=== PATIENT | female | born 1975 | race African-American/Black ===

== ENCOUNTER 2019-07-06 06:22 | Inpatient (IN) ==
[2019-07-06] MEDS ORDERED: DUONEB (A & A) ONE (06:36)
[2019-07-06] MEDS ORDERED: DUONEB (A & A) INH ONE ×2 (06:37→07:48)
[2019-07-06] MEDS ORDERED: TYLENOL PO ONE (07:01)
--- NOTE | 2019-07-06 07:17 | Diag Imaging Result Doc PS360 ---
EXAM: CHEST-2 VIEWS HISTORY: wheezing TECHNIQUE: Chest two views COMPARISON: 04/11/2018 FINDINGS: The lungs are well expanded. The heart is not enlarged. The vessels are not distended. There are no infiltrates. No pleural effusions. IMPRESSION: No acute abnormality. Electronically signed by Wilian Caceres 07/06/2019 7:15 AM
[2019-07-06] MEDS ORDERED: SOLU-MEDROL IV ONE (07:48)
[2019-07-06] MEDS ORDERED: ROCEPHIN 1 GM in NS 50 ML IV ONE (07:48)
[2019-07-06 08:22] LABS: BE 3.6 mmoll (-3.0-3.0); BLOOD TYPE ARTERIAL; HCO3-(ACT) 27.4 mmoll (20.0-26.0); METHB 0.9 % (0.0-1.5); O2(CT) 18.3 mL/dL (15.0-23.0); PCO2(98.6) 43 mmHg (35-45); PO2(98.6) 56 mmHg (60-100); SAMPLE BLOOD; SAO2 92.1 % (95.0-100.0); THB 14.9 g/dL (11.5-17.4); pH(98.6) 7.43 (7.35-7.45)
[2019-07-06 08:26] LABS: ALLEN TEST YES; MODALITY ROOM AIR; O2HB 87.3 % (95.0-99.0)
[2019-07-06 08:37] LABS: BASO# 0.03 X1000 (0.0-0.2); BASO% 0.3 % (0.0-0.8); EOS# 0.28 X1000 (0.0-0.7); EOS% 2.9 % (0.0-10.0); HEMATOCRIT 39.4 % (37.0-47.0); HEMOGLOBIN 12.4 g/dL (12.0-16.0); IMM GRAN# 0.02 X1000 (0.0-0.04); IMM GRAN% 0.2 % (0.0-0.5); LYMPH# 1.39 X1000 (1.2-3.4); LYMPH% 14.4 % (20.5-51.1); MCH 24.8 PG (27-31); MCHC 31.5 g/dL (33-37); MCV 78.6 FL (81-99); MONO# 0.62 X1000 (0.11-0.59); MONO% 6.4 % (1.7-9.3); MPV 11.6 FL (7.4-10.4); NEUT# 7.29 X1000 (1.4-6.5); NEUT% 75.8 % (42.2-75.2); PLT 269 X1000 (130-400); RBC 5.01 XMIL (4.2-5.4); RDW 17.8 % (11.5-14.5); WBC 9.63 X1000 (4.8-10.8)
[2019-07-06 08:42] LABS: AGAP 9; BUN 7 mg/dL (8-22); CALCIUM 9.2 mg/dL (8.8-10.2); CHLORIDE 104 mmol/L (98-107); COSMO 285; CREATININE 0.7 mg/dL (0.5-0.9); ESTIMATED GFR > 60; GLUCOSE 135 mg/dL (70-104); POTASSIUM 3.4 mmol/L (3.5-5.1); SODIUM 143 mmol/L (136-145); TCO2 31 mmol/L (25-35)
[2019-07-06 08:55] LABS: INFLUENZA A NEGATIVE (NEGATIVE); INFLUENZA B NEGATIVE (NEGATIVE)
[2019-07-06] MEDS ORDERED: ZOFRAN IV PRN (11:07)
[2019-07-06] MEDS ORDERED: DUONEB (A & A) INH PRN (11:07)
[2019-07-06] MEDS ORDERED: NS 1,000 ML IV ONE (11:07)
--- NOTE | 2019-07-06 11:10 | PROVIDER DOCUMENTATION ---
This chart was entered by Phyllis De León Scribe, acting as scribe for Binu Gaytan MD. HPI-Respiratory General - General Chief Complaint: Wheezing Stated Complaint: COUGH / CONGESTION / SOB Time Seen by Provider: 07/06/19 07:45 Source: patient Allergies/Adverse Reactions: Patient Allergies Allergy/AdvReac Type Severity Reaction Status Date / Time diclofenac Allergy Unknown Verified 07/06/19 06:29 Penicillins Allergy Unknown Verified 07/06/19 06:29 Home Medications: Home Medication List Medication Instructions Recorded Confirmed Last Taken Type NK [No Home Medications] 07/06/19 07/06/19 Unknown History - History of Present Illness-Resp Nature of Presenting Problem: Patient is a 44 year old female who presents with shortness of breath, wheezing and cough. States symptoms have been present for 3 days. Denies history of asthma. Quality of Pain: reports: tightness Severity in ED: reports: mild Onset/Duration: reports: 3 days ago Timing: reports: still present, getting worse Cough Quality/Degree: reports: moderate, productive cough, sputum (yellow) Associated Symptoms: reports: cough, shortness of breath, wheezing Similar Symptoms Previously?: Yes Recently seen or treated by another doctor?: No Review of Systems - Adult - REVIEW OF SYSTEMS - ADULT Constitutional: reports: no symptoms reported. denies: chills, fever, fatique Eyes: reports: no symptoms reported Ears, Nose, Mouth & Throat: reports: no symptoms reported Cardiovascular: reports: no symptoms reported Respiratory: reports: see HPI, cough, shortness of breath, wheezing Gastrointestinal: reports: no symptoms reported Genitourinary: reports: no symptoms reported Musculoskeletal: reports: no symptoms reported Integumentary: reports: no symptoms reported Neurological: reports: no symptoms reported Psychiatric: reports: no symptoms reported Endocrine: reports: no symptoms reported Hematologic/Lymphatic: reports: no symptoms reported Allergic/Immunologic: reports: no symptoms reported All Other Systems: Reviewed and Negative Past History - Adult - PAST MEDICAL HISTORY-ADULT Review of Records: reports: Old Records Reviewed, Social history reviewed & non- contributory. Major Childhood Illnesses: reports: denies history Cardiovascular: reports: denies history Respiratory: reports: denies history Gastrointestinal: reports: denies history Obstetrical/Gynecological: reports: ectopic Genitourinary: reports: denies history Musculoskeletal: reports: chronic pain (chronic back pain) Neurological: reports: denies history Psychiatric: reports: denies history Endocrine/Immune: reports: Diabetes (no medications) Other Conditions: reports: denies history - PRIOR SURGERIES/PROCEDURES Surgical/Procedure History: reports: appendectomy, hysterectomy, BTL, , other (ectopic preg) - IMMUNIZATION STATUS Childhood Immunizations: See Nurse Assessment Flu Vaccine: See Nurse Assessment - FAMILY HISTORY Family History: sudden (brother/father), CAD under 55yo (brother/father at 45 of [place]) - SOCIAL HISTORY Smoking: cigarettes, less than 1 pack/day Provider spent 3-5 mins advising pt. on dangers of tobacco.: Discussed manners to quit use, and f/u contacts for add'l counseling. Substance Use: denies Physical Exam-General - PHYSICAL EXAM-ADULT Initial Vital Signs Reviewed: Yes - CONSTITUTIONAL General Appearance: alert, no apparent distress, other (coughing). negative: lethargic - HEAD, EARS, NOSE, MOUTH & THROAT HENMT: normocephalic/atraumatic, moist mucous membranes. negative: angioedema - RESPIRATORY Respiratory: chest non-tender, rales (moderate bilaterally), wheezing (mild). negative: respiratory distress, accessory muscle use, retractions, increased rate - CARDIOVASCULAR Cardiovascular: normal peripheral pulses, regular rate, rhythm. negative: tachycardia, systolic murmur - GASTROINTESTINAL (ABDOMEN) Abdominal Exam: normal bowel sounds, non tender, soft. negative: guarding, rigid - MUSCULOSKELETAL Extremity: normal range of motion, non-tender, normal inspection. negative: calf tenderness, deformity, erythema - SKIN Integumentary: normal color, normal turgor, warm/dry. negative: diaphoresis, ecchymosis, jaundice, rash - NEUROLOGIC Neurologic: grossly normal. negative: aphasia, facial droop - PSYCHIATRIC Psych/Mental Status: normal mood/affect, oriented x 3. negative: anxious Progress - PLAN OF CARE/RESULTS Progress/Plan/Lab Results: Vital Signs - 8 hr 07/06/19 06:25 07/06/19 06:45 07/06/19 08:00 Pulse Rate 98 H 98 H 91 H Respiratory Rate 22 22 24 Blood Pressure 164/99 O2 Sat by Pulse Oximetry 91 L 96 93 L 07/06/19 08:24 07/06/19 10:16 07/06/19 10:55 Pulse Rate 96 H 94 H Respiratory Rate 26 H 20 20 Blood Pressure 141/77 O2 Sat by Pulse Oximetry 85 L 94 L Laboratory Results - last 24 hr 07/06/19 07/06/19 07/06/19 07:45 07:56 08:10 WBC RBC Hgb Hct MCV MCH MCHC RDW Std Deviation Plt Count MPV Immature Gran % (Auto) Neut % (Auto) Lymph % (Auto) [place] % (Auto) Eos % (Auto) Baso % (Auto) Immature Gran # (Auto) Neut # (Auto) Lymph # (Auto) [place] # (Auto) Eos # (Auto) Baso # (Auto) Specimen Type ARTERIAL Sample Site R RADIAL pH 7.43 pCO2 43 pO2 56 L HCO3 27.4 H Base Excess 3.6 H Oxyhemoglobin 87.3 L* ABG O2 Sat (Calculated) 18.3 ABG O2 Saturation 92.1 L ABG Carboxyhemoglobin 4.30 H ABG Methemoglobin 0.9 Benjamin Test YES A-a O2 Difference 40.0 Total Hemoglobin 14.9 Lactate 0.80 Blood Gas Modality ROOM AIR FiO2 % 21.0 Sodium 143 Potassium 3.4 L Chloride 104 Carbon Dioxide 31 Anion Gap 9 BUN 7 L Creatinine 0.7 Estimated GFR/1.73 m2 > 60 BUN/Creatinine Ratio 10 Glucose 135 H Calculated Osmolality 285 Calcium 9.2 Plasma Lactate Influenza A (Rapid) NEGATIVE Influenza B (Rapid) NEGATIVE 07/06/19 07/06/19 08:10 08:10 WBC 9.63 RBC 5.01 Hgb 12.4 Hct 39.4 MCV 78.6 L MCH 24.8 L MCHC 31.5 L RDW Std Deviation 17.8 H Plt Count 269 MPV 11.6 H Immature Gran % (Auto) 0.2 Neut % (Auto) 75.8 H Lymph % (Auto) 14.4 L [place] % (Auto) 6.4 Eos % (Auto) 2.9 Baso % (Auto) 0.3 Immature Gran # (Auto) 0.02 Neut # (Auto) 7.29 H Lymph # (Auto) 1.39 [place] # (Auto) 0.62 H Eos # (Auto) 0.28 Baso # (Auto) 0.03 Specimen Type Sample Site pH pCO2 pO2 HCO3 Base Excess Oxyhemoglobin ABG O2 Sat (Calculated) ABG O2 Saturation ABG Carboxyhemoglobin ABG Methemoglobin Benjamin Test A-a O2 Difference Total Hemoglobin Lactate Blood Gas Modality FiO2 % Sodium Potassium Chloride Carbon Dioxide Anion Gap BUN Creatinine Estimated GFR/1.73 m2 BUN/Creatinine Ratio Glucose Calculated Osmolality Calcium Plasma Lactate 1.0 Influenza A (Rapid) Influenza B (Rapid) Orders Category Date Time Status Admit - [facility] Routine AdmDCTranf 07/06/19 11:07 Active Activity - Up with Assistance ORDERED Care 07/06/19 11:07 Active FSBS/Accucheck Result AC + HS Care 07/06/19 11:07 Active Saline Loc NOW Care 07/06/19 07:47 Active Diabetic Diet Diet 07/06/19 11:07 Active CHEST-2 VIEWS [RAD] Stat Exams 07/06/19 06:42 Completed ABG [RESP] Routine Lab 07/06/19 07:45 Completed BASIC METABOLIC PANEL [CHEM] Stat Lab 07/06/19 08:10 Completed BLOOD CULTURE [BLDCUL] Stat Lab 07/06/19 07:47 Ordered CBC WITH ELECTRONIC DIFF [HEME] Stat Lab 07/06/19 08:[address] Stat Lab 07/06/19 07:56 Completed LACTATE, PLASMA [CHEM] Stat Lab 07/06/19 08:10 Completed SPUTUM CULTURE WITH GRAM STAIN [RM] Routine Lab 07/06/19 11:07 Uncollected 0.9% Sodium Chloride Inj [Ns] 1,000 ml Med 07/06/19 11:07 Active IV 50 mls/hr Acetaminophen [Tylenol] Med 07/06/19 07:01 Discontinued 1,000 mg PO NOW ONE Acetaminophen [Tylenol] Med 07/06/19 11:07 Ordered 650 mg PO Q6H PRN PRN Albuterol 2.5MG/Ipratrop 0.5MG [Duoneb (A & A)] Med 07/06/19 06:36 Discontinued 3 ml .ROUTE .STK-MED ONE Albuterol 2.5MG/Ipratrop 0.5MG [Duoneb (A & A)] Med 07/06/19 06:37 Discontinued 3 ml INH NOW ONE Albuterol 2.5MG/Ipratrop 0.5MG [Duoneb (A & A)] Med 07/06/19 07:48 Discontinued 3 ml INH NOW ONE Albuterol 2.5MG/Ipratrop 0.5MG [Duoneb (A & A)] Med 07/06/19 11:07 Ordered 3 ml INH Q2H PRN PRN Budesonide [Pulmicort] Med 07/06/19 19:30 Ordered 0.5 mg INH RTBID CefTRIAXONE [Rocephin] 1 gm Med 07/06/19 07:48 Discontinued 0.9% Sodium Chloride Inj [Ns] 50 ml IV NOW CefTRIAXONE [Rocephin] 1 gm Med 07/07/19 09:00 Ordered 0.9% Sodium Chloride Inj [Ns] 50 ml IV Q24H Enoxaparin [Lovenox] Med 07/07/19 09:00 Ordered 40 mg SUBQ Q24H Insulin Human Regular [Humulin R] Med 07/06/19 16:00 Ordered See Protocol SUBQ 0700,1100,1600,2100 Ipratropium Ryan Neb [Atrovent Neb] Med 07/06/19 11:30 Ordered 0.5 mg INH RTQ4H Levalbuterol Neb [Xopenex Neb] Med 07/06/19 11:30 Ordered 1.25 mg INH RTQ4H Methylprednisolone Sod Succ [Solu-Medrol] Med 07/06/19 07:48 Discontinued 125 mg IV NOW ONE Methylprednisolone Sod Succ [Solu-Medrol] Med 07/06/19 16:00 Ordered 40 mg IV Q8H Nicotine Patch [Nicoderm Patch] Med 07/06/19 11:15 Ordered 14 mg TD DAILY Ondansetron [Zofran] Med 07/06/19 11:07 Ordered 4 mg IV Q4H PRN PRN Pantoprazole [Protonix] Med 07/07/19 07:00 Ordered 40 mg PO DAILY@0700 Aerosol Treatments Routine Ot 07/06/19 06:37 Completed Aerosol Treatments Routine Ot 07/06/19 07:48 Completed Aerosol Treatments Routine [facility] 07/06/19 11:07 Active Aerosol Treatments Stat Ot 07/06/19 06:37 Completed Aerosol Treatments Stat Ot 07/06/19 07:48 Completed Incentive Spirometer Q4HR.AWAKE Ot 07/06/19 13:00 Ordered Incentive Spirometer Q4HR.AWAKE Ot 07/06/19 17:00 Ordered Incentive Spirometer Q4HR.AWAKE Ot 07/06/19 21:00 Ordered Incentive Spirometer Q4HR.AWAKE Ot 07/07/19 01:00 Ordered Incentive Spirometer Q4HR.AWAKE Ot 07/07/19 05:00 Ordered Incentive Spirometer Q4HR.AWAKE [facility] 07/07/19 09:00 Ordered Peak Flow BID Ot 07/06/19 21:00 Ordered Peak Flow BID [facility] 07/07/19 09:00 Ordered Transfer/Admit Order [TRANSFER] Routine Transfer 07/06/19 11:02 Ordered Result Diagrams: 07/06/19 08:10 07/06/19 08:10 - REASSESSMENT Reassessment #1 Time Reassessed: 10:07 Status: improving (WHEEZING AND RALES IMPROVED POST DUO-NEB,TRATEMENTS BUT STILL DESATS DOWN TO 88% ON ROOM PAIN! PAGING DR GONG NOW.) - XRAY 1 XRAY Study: Chest Impression: See EMR Report ( EXAM: CHEST-2 VIEWS HISTORY: wheezing TECHNIQUE: Chest two views COMPARISON: 04/11/2018 FINDINGS: The lungs are well expanded. The heart is not enlarged. The vessels are not distended. There are no infiltrates. No pleural effusions. IMPRESSION: No acute abnormality. Electronically signed by Wilian Caceres 07/06/2019 7:15 AM 07/06/19714 Interpreting Physician: Wilian Caceres MD Dictated Date/Time: 07/06/19713 cc: Cecilio Tamez MD; None,PCP) - CONSULTS/PCP/HOSPITALIST Notification #1 *Consult/PCP/Hospitalist*: Dr. Gong Time Discussed: 10:36 Reason/Comments: Dr. Gaytan consulted Dr. Gong about patient Consult Disposition: Will see in ED, Admit Departure - Departure Date of Disposition Decision: 07/06/19 Time of Disposition Decision: 10:37 DIAGNOSIS: Acute asthmatic bronchitis, Hypoxemia Disposition: ADMITTED INPATIENT 09 Certified Medical Emergency: Emergent Condition: Stable Referrals and Follow-Ups: None,PCP [Primary Care Provider] - - Critical Care Note This patient required my direct & personal management of CC.: No Attestation - Physician/ WALLY Attestation The physician spent face to face time with patient:: Yes Advanced Practice Provider documentation review:: Supervising physician onsite and consulted in the evaluation and care of this patient. The physician did have a face to face encounter with the patient. This chart was documented by the indicated scribe, (Phyllis De León, Lesley) and accurately reflects the services I performed and decisions made by me, Binu Gaytan MD, as attested by the provider's signature.
[2019-07-06] MEDS ORDERED: ATROVENT NEB INH SCH (11:30)
[2019-07-06] MEDS ORDERED: XOPENEX NEB INH SCH (11:30)
[2019-07-06 12:22] LABS: HEMOGLOBIN A1C 7.1 % (4.8-6.0)
[2019-07-06 12:39] LABS: FREE T4 1.11 ng/dL (0.93-1.70); TSH 2.2 uIUmL (0.27-4.20)
--- NOTE | 2019-07-06 13:22 | HISTORY AND PHYSICAL ---
PRIMARY CARE PROVIDER: No one. CHIEF COMPLAINT: Shortness of breath with chest discomfort. HISTORY OF PRESENT ILLNESS: Ms. Ellie Calderon is a 44-year-old, female with a medical history of asthma, COPD, diabetes mellitus - untreated, chronic back pain, hypertension - untreated, and seasonal allergies. States for the last 3 days, she has had headaches, shortness of breath, severe coughing spells and coughs more frequently at night, some dizziness, lightheaded spells when she is coughing, and has been around other kids that have had congestion as well. Chest x-ray is clear. White blood cell count is normal but she does have some hypoxia and expiratory wheezes noted so it is either acute asthma or it is bronchitis. We are going to admit her and treat her accordingly. PAST MEDICAL HISTORY: 1. Asthma with COPD. 2. Diabetes mellitus type 2, untreated. 3. Chronic back pain. 4. Hypertension, untreated. 5. Seasonal allergies. 6. Morbid obesity with a BMI of 34.7. SURGICAL HISTORY: 1. Appendectomy. 2. section. 3. Hysterectomy. 4. Tubal ligation. 5. Ectopic . SOCIAL HISTORY: She has smoked since the age of 20. She smokes a half pack per day. Denies alcohol or illicit drug use. She lives at home with her and 3 children. One of her daughters is . 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 FAMILY HISTORY: Mother, no medical history. Father had pancreatic and lung cancer. He also had 4 heart attacks while he was alive and at the age of 42. Her grandfather had colon cancer on her father's side. Her uncle on her father's side at 36 from a stroke and heart attack. Her brother at 43 from a heart attack and he had 2 strokes along with diabetes. She has 1 child with Down syndrome. ALLERGIES: Diclofenac and penicillin. HOME MEDICATIONS: None. REVIEW OF SYSTEMS: Fourteen point review of systems are complete and all were negative except for those mentioned above in the HPI. She did say she had some epigastric discomfort, mostly because of coughing so much. PHYSICAL EXAMINATION: VITAL SIGNS: Temperature not recorded. Heart rate 96, respiratory rate 20, blood pressure was 141/77, O2 saturation on room air is 85% and O2 saturation on 2 L nasal cannula is 92-93%. GENERAL: Ms. Ellie Calderon is a 44-year-old, female. She is in no acute distress. She is able to answer questions appropriately. HEENT: Atraumatic, normocephalic. Pupils equal, round, reactive to light. Extraocular movements intact. Mucous membranes are dry. NECK: Trachea midline. CARDIOVASCULAR: S1, S2. Regular rate and rhythm. No rubs, gallops, murmurs. No lower extremity edema. There are +2 dorsalis and radial pulses. Negative for JVD and carotid bruits. PULMONARY: Expiratory wheezes noted anteriorly and posteriorly with prolonged expiration. Mild accessory muscle use and mild work of breathing. She is tolerating 2 L nasal cannula. G: Soft, nontender, nondistended. Positive bowel sounds x4. EXTREMITIES: Moves all extremities equally with full range of motion. NEUROLOGIC: A and O x3. Follows commands. Sensory is intact. SKIN: Warm, dry, intact. LABORATORY DATA: White blood cells 9000, hemoglobin 12, hematocrit 39, platelet count 269,000. ABGs on room air, pH 7.43, pCO2 of 43, PO2 of 56, bicarb 27, base excess 3.6, saturation 97%, lactate 0.8 on room air. Sodium 143, potassium 3.4, BUN 7, creatinine 0.7, glucose 135, calcium 9.2. Lactate 1.0. Flu negative. IMAGING: Chest x-ray, no acute abnormalities. ASSESSMENT AND PLAN: 1. Acute bronchitis with a history of asthma and chronic obstructive pulmonary disease without home medication management. Apparently, she said that the inhalers she was prescribed on discharge last year were 200 dollars and she could not afford it. She will have nebulizers, budesonide, intravenous steroids. We will try to get a sputum sample. She states she is coughing up green colors. She will get intravenous Rocephin for antibiotic coverage and some intravenous fluid hydration. 2. Seasonal allergies. She could be having a reaction to the high pollen counts that are going on right now as well. We can add Zyrtec to her medication regimen. 3. Diabetes mellitus type 2. She states she does not have it or she has not been taking medications for it. She is hyperglycemic and we will check a hemoglobin A1c. We will do pattern of blood glucoses, sliding scale insulin, and diabetic diet. 4. Chronic back pain. She can have some Tylenol. 5. Hypertension, untreated. We will monitor it while she is here. She states it only gets high when she is sick. 6. Deep venous thrombosis. Lovenox. 7. Significant family history on her father's side of early due to myocardial infarction. Family members that would be her brother at age 43, her father at age 42, her uncle at age 36. We will do a lipid panel along with a hemoglobin A1c, probably get her started on some aspirin. 8. Tobacco abuse. Cessation discussed. Nicotine patch ordered. Dictated by TIFFANY Jenkins for Ramez Augustin MD Addendum: Patient seen and examined by myself. Agree with TIFFANY note. It reflects my assessment and plan. Patient is admitted to hospital for acute bronchitis. Will start broad spectrum antibiotics, duoneb and IV steroids Will monitor patient closely. cc: TIFFANY Jenkins MD MTDD
[2019-07-06] MEDS: LEVAQUIN 750 MG/D5W 750 MG/150 ML IVPB IV SCH (14:24)
[2019-07-06] MEDS: NICODERM PATCH TD SCH (14:24)
[2019-07-06] MEDS: ZYRTEC PO SCH (14:24)
[2019-07-06] MEDS: MUCINEX PO SCH ×2 (14:41→21:21)
[2019-07-06] MEDS: DUONEB (A & A) INH SCH ×3 (15:25→22:49)
[2019-07-06] MEDS ORDERED: PNEUMOVAX 23 IM ONE (16:00)
[2019-07-06] MEDS: HUMULIN 70/30 (PARKWAY) SUBQ SCH ×2 (16:51→21:20)
[2019-07-06] MEDS: SOLU-MEDROL IV SCH ×2 (16:51→23:05)
[2019-07-06] MEDS: PULMICORT INH SCH (19:32)
[2019-07-06] MEDS: TYLENOL PO PRN (23:46)
[2019-07-07] MEDS: DUONEB (A & A) INH SCH ×6 (03:32→23:03)
[2019-07-07] MEDS: HUMULIN 70/30 (PARKWAY) SUBQ SCH ×4 (06:11→21:14)
[2019-07-07] MEDS: PROTONIX PO SCH (06:11)
[2019-07-07 06:31] LABS: BASO# 0.01 X1000 (0.0-0.2); BASO% 0.1 % (0.0-0.8); HEMATOCRIT 36.1 % (37.0-47.0); HEMOGLOBIN 11.2 g/dL (12.0-16.0); IMM GRAN# 0.08 X1000 (0.0-0.04); IMM GRAN% 0.5 % (0.0-0.5); LYMPH# 0.71 X1000 (1.2-3.4); LYMPH% 4.5 % (20.5-51.1); MCH 24.4 PG (27-31); MCV 78.6 FL (81-99); MONO# 0.43 X1000 (0.11-0.59); MONO% 2.7 % (1.7-9.3); MPV 11.8 FL (7.4-10.4); NEUT# 14.48 X1000 (1.4-6.5); NEUT% 92.2 % (42.2-75.2); PLT 247 X1000 (130-400); RBC 4.59 XMIL (4.2-5.4); RDW 17.8 % (11.5-14.5); WBC 15.71 X1000 (4.8-10.8)
[2019-07-07 06:48] LABS: ANISOCYTOSIS 1+; LYMPHS 5 % (21-51); SEGS 95 % (42-75)
[2019-07-07 06:51] LABS: AGAP 13; ALBUMIN 3.6 g/dL (3.5-5.0); ALKALINE PHOSPHATASE 159 U/L (32-104); BUN 8 mg/dL (8-22); CALCIUM 9.2 mg/dL (8.8-10.2); CHLORIDE 108 mmol/L (98-107); COSMO 295; CREATININE 0.7 mg/dL (0.5-0.9); ESTIMATED GFR > 60; GLUCOSE 343 mg/dL (70-104); GOT 14 U/L (10-30); GPT 14 U/L (10-36); POTASSIUM 3.8 mmol/L (3.5-5.1); SODIUM 142 mmol/L (136-145); TCO2 22 mmol/L (25-35); TOTAL BILIRUBIN < 0.15 mg/dL (0.20-1.00); TOTAL PROTEIN 6.7 g/dL (6.3-8.3)
--- NOTE | 2019-07-07 07:30 | Diag Imaging Result Doc PS360 ---
EXAM: CHEST-2 VIEWS HISTORY: short of breath TECHNIQUE: Chest two views COMPARISON: 07/06/2019 FINDINGS: The lungs are well expanded. The heart is not enlarged. The vessels are not distended. Minimal increased markings in the lung bases and right apex. No pleural effusions. IMPRESSION: Questionable tiny basilar infiltrates Electronically signed by Wilian Caceres 07/07/2019 7:29 AM
[2019-07-07] MEDS: PULMICORT INH SCH ×2 (07:54→19:26)
[2019-07-07] MEDS: MUCINEX PO SCH ×2 (08:21→21:14)
[2019-07-07] MEDS: SOLU-MEDROL IV SCH (08:21)
[2019-07-07] MEDS: NICODERM PATCH TD SCH (08:22)
[2019-07-07] MEDS: LOVENOX SUBQ SCH (08:22)
[2019-07-07] MEDS: ASPIRIN PO SCH (08:22)
[2019-07-07] MEDS: ZYRTEC PO SCH (08:22)
[2019-07-07] MEDS: ROCEPHIN 1 GM in NS 50 ML IV SCH (08:42)
--- NOTE | 2019-07-07 10:57 | PROGRESS NOTE ---
DATE: 07/07/2019 SUBJECTIVE: The patient reports feeling fine. Denies any fever or chills. Shortness of breath is getting better. OBJECTIVE: Vital Signs: Temperature 98.2 degrees, heart rate 80, respiratory 14, blood pressure 166/79, O2 saturation 94% 2 L nasal cannula. General: This is a 44-year-old female lying in bed, in no acute distress. Cardiovascular: S1, S2 heard. No murmurs, gallops, or rubs. Regular rate and rhythm. Respiratory: Clear bilaterally to auscultation. No work of breathing or using accessory muscles. Abdomen: Soft. Expiratory wheezing noted anteriorly and posteriorly, getting better. The patient is not using any accessory muscles or having work of breathing. Abdomen: Soft, nontender to palpation. Bowel sounds present. No organomegaly. Extremities: No clubbing, cyanosis, or edema. Peripheral pulses present in both legs. Neurological: The patient is alert and oriented x3. Moves 4 extremities. LABORATORY DATA: White cell count 15.71. Hemoglobin A1c 7.0. Blood sugars 343. ASSESSMENT AND PLAN: 1. Acute bronchitis with history of chronic obstructive pulmonary disease. Patient continues to be on antibiotics, in this case is ceftriaxone and Levaquin. The patient has been receiving also IV steroids but this is causing that the blood sugar has been really high. White cell count is getting higher as well, so at this point, we will stop the steroids. We will continue with current antibiotics. 2. Diabetes mellitus type 2. The patient has hemoglobin A1c of 7.0 which makes diagnosis diabetes. She has been told that she had diabetes but she was not taking any medication. In any case, we will continue with sliding scale insulin. We will continue with metformin and we will go from there. 3. Chronic back pain. The patient will continue with Tylenol. 4. Hypertension. Blood pressure is under control. We will continue with current medications. 5. Disposition. I think at this point, we will continue with the current management. If patient is feeling better and requiring no oxygen, then we will let her go out tomorrow. cc: MD LIZETT Brandon
[2019-07-07 12:33] LABS: AGAP 13; ALKALINE PHOSPHATASE 155 U/L (32-104); BUN 9 mg/dL (8-22); CALCIUM 9.3 mg/dL (8.8-10.2); CHLORIDE 107 mmol/L (98-107); COSMO 296; CREATININE 0.8 mg/dL (0.5-0.9); ESTIMATED GFR > 60; GLUCOSE 287 mg/dL (70-104); GOT 12 U/L (10-30); GPT 15 U/L (10-36); SODIUM 144 mmol/L (136-145); TCO2 24 mmol/L (25-35); TOTAL BILIRUBIN < 0.15 mg/dL (0.20-1.00)
[2019-07-07] MEDS: LEVAQUIN 750 MG/D5W 750 MG/150 ML IVPB IV SCH (14:21)
[2019-07-07 18:47] LABS: AGAP 14; ALBUMIN 3.7 g/dL (3.5-5.0); ALKALINE PHOSPHATASE 157 U/L (32-104); BUN 10 mg/dL (8-22); CALCIUM 9.2 mg/dL (8.8-10.2); CHLORIDE 106 mmol/L (98-107); COSMO 298; CREATININE 0.8 mg/dL (0.5-0.9); ESTIMATED GFR > 60; GLUCOSE 412 mg/dL (70-104); GOT 17 U/L (10-30); GPT 12 U/L (10-36); SODIUM 141 mmol/L (136-145); TCO2 21 mmol/L (25-35); TOTAL BILIRUBIN < 0.15 mg/dL (0.20-1.00); TOTAL PROTEIN 6.7 g/dL (6.3-8.3)
[2019-07-08] MEDS: TYLENOL PO PRN (00:19)
[2019-07-08 01:44] LABS: AGAP 11; ALBUMIN 3.9 g/dL (3.5-5.0); ALKALINE PHOSPHATASE 151 U/L (32-104); BUN 11 mg/dL (8-22); CHLORIDE 108 mmol/L (98-107); COSMO 288; CREATININE 0.7 mg/dL (0.5-0.9); ESTIMATED GFR > 60; GLUCOSE 200 mg/dL (70-104); GOT 16 U/L (10-30); GPT 17 U/L (10-36); POTASSIUM 3.9 mmol/L (3.5-5.1); SODIUM 142 mmol/L (136-145); TCO2 22 mmol/L (25-35); TOTAL BILIRUBIN < 0.15 mg/dL (0.20-1.00); TOTAL PROTEIN 6.9 g/dL (6.3-8.3)
[2019-07-08 05:34] LABS: BASO# 0.01 X1000 (0.0-0.2); BASO% 0.1 % (0.0-0.8); HEMATOCRIT 35.4 % (37.0-47.0); HEMOGLOBIN 11.1 g/dL (12.0-16.0); IMM GRAN# 0.05 X1000 (0.0-0.04); IMM GRAN% 0.4 % (0.0-0.5); LYMPH% 21.9 % (20.5-51.1); MCH 24.5 PG (27-31); MCHC 31.4 g/dL (33-37); MCV 78.1 FL (81-99); MONO# 0.84 X1000 (0.11-0.59); MONO% 6.1 % (1.7-9.3); MPV 11.2 FL (7.4-10.4); NEUT# 9.77 X1000 (1.4-6.5); NEUT% 71.5 % (42.2-75.2); PLT 251 X1000 (130-400); RBC 4.53 XMIL (4.2-5.4); RDW 17.8 % (11.5-14.5); WBC 13.67 X1000 (4.8-10.8)
[2019-07-08] MEDS: DUONEB (A & A) INH SCH ×6 (05:47→23:09)
[2019-07-08 06:12] LABS: AGAP 9; ALBUMIN 3.5 g/dL (3.5-5.0); ALKALINE PHOSPHATASE 132 U/L (32-104); BUN 10 mg/dL (8-22); CALCIUM 8.8 mg/dL (8.8-10.2); CHLORIDE 109 mmol/L (98-107); COSMO 284; CREATININE 0.7 mg/dL (0.5-0.9); ESTIMATED GFR > 60; GLUCOSE 68 mg/dL (70-104); GOT 16 U/L (10-30); GPT 17 U/L (10-36); POTASSIUM 3.7 mmol/L (3.5-5.1); SODIUM 144 mmol/L (136-145); TCO2 27 mmol/L (25-35); TOTAL PROTEIN 6.3 g/dL (6.3-8.3)
[2019-07-08] MEDS: PROTONIX PO SCH (06:26)
[2019-07-08] MEDS: HUMULIN 70/30 (PARKWAY) SUBQ SCH ×4 (06:27→20:39)
[2019-07-08] MEDS: PULMICORT INH SCH ×2 (07:44→19:17)
[2019-07-08] MEDS: LOVENOX SUBQ SCH (09:38)
[2019-07-08] MEDS: MUCINEX PO SCH ×2 (09:38→20:37)
[2019-07-08] MEDS: ASPIRIN PO SCH (09:38)
[2019-07-08] MEDS: ROCEPHIN 1 GM in NS 50 ML IV SCH (09:38)
[2019-07-08] MEDS: ZYRTEC PO SCH (09:38)
[2019-07-08] MEDS: LEVAQUIN PO SCH (09:38)
--- NOTE | 2019-07-08 10:09 | PROGRESS NOTE ---
DATE: 07/08/2019 SUBJECTIVE: Patient reports feeling still short of breath when she walks. Denies any fever or chills. OBJECTIVE: Vital Signs: Temperature 98.2 degrees, heart rate 65, respiratory rate 18, blood pressure 147/76, O2 saturation 95% on room air. General: This is a 44-year-old female lying in bed, in no acute distress. Cardiovascular: S1, S2 heard. No murmurs, gallops, or rubs. Regular rate and rhythm. Respiratory: Minimal end-expiratory wheezing noted today. The patient is not using any accessory muscles or having work of breathing. Abdomen: Soft. Nontender to palpation. Bowel sounds present. No organomegaly. Extremities: No clubbing, cyanosis, or edema. Peripheral pulses present in both legs. Neurological: Patient is alert and oriented x3, moves 4 extremities. LABORATORY DATA: White cell count 13.67, hemoglobin 11.1, hematocrit 35.4, platelets 251,000, with normal BMP. ASSESSMENT AND PLAN: 1. Acute bronchitis with history of chronic obstructive pulmonary disease. Patient is on ceftriaxone and Levaquin. Patient is still feeling a little bit short of breath. We will keep this patient one more day and see how she does tomorrow. We will continue with breathing treatments every 4 hours scheduled. 2. Diabetes mellitus type 2. We will continue with sliding scale insulin before meals and at bedtime. Will prescribe metformin at discharge. 3. Chronic back pain. We will continue with Tylenol. 4. Hypertension. Blood pressure is under control. We will continue with the same management. 5. Disposition. I think at this point, we will continue current management. I think tomorrow if patient is feeling better, she can be discharged. cc: Ramez Augustin MD [facility] SYSTEM[facility]ach
[2019-07-08 12:06] LABS: AGAP 10; ALBUMIN 3.7 g/dL (3.5-5.0); ALKALINE PHOSPHATASE 131 U/L (32-104); BUN 8 mg/dL (8-22); CALCIUM 8.4 mg/dL (8.8-10.2); CHLORIDE 107 mmol/L (98-107); COSMO 285; CREATININE 0.6 mg/dL (0.5-0.9); ESTIMATED GFR > 60; GLUCOSE 91 mg/dL (70-104); GOT 16 U/L (10-30); GPT 17 U/L (10-36); POTASSIUM 3.2 mmol/L (3.5-5.1); SODIUM 144 mmol/L (136-145); TCO2 28 mmol/L (25-35); TOTAL BILIRUBIN < 0.15 mg/dL (0.20-1.00); TOTAL PROTEIN 6.5 g/dL (6.3-8.3)
[2019-07-08] MEDS: NICODERM PATCH TD SCH (16:38)
[2019-07-09] MEDS: DUONEB (A & A) INH SCH ×2 (04:09→07:42)
[2019-07-09 05:41] LABS: BASO# 0.02 X1000 (0.0-0.2); BASO% 0.3 % (0.0-0.8); EOS# 0.05 X1000 (0.0-0.7); EOS% 0.7 % (0.0-10.0); HEMATOCRIT 35.8 % (37.0-47.0); HEMOGLOBIN 11.2 g/dL (12.0-16.0); IMM GRAN# 0.02 X1000 (0.0-0.04); IMM GRAN% 0.3 % (0.0-0.5); LYMPH# 2.42 X1000 (1.2-3.4); LYMPH% 32.8 % (20.5-51.1); MCH 24.6 PG (27-31); MCHC 31.3 g/dL (33-37); MCV 78.5 FL (81-99); MONO# 0.43 X1000 (0.11-0.59); MONO% 5.8 % (1.7-9.3); MPV 11.2 FL (7.4-10.4); NEUT# 4.44 X1000 (1.4-6.5); NEUT% 60.1 % (42.2-75.2); PLT 241 X1000 (130-400); RBC 4.56 XMIL (4.2-5.4); WBC 7.38 X1000 (4.8-10.8)
[2019-07-09] MEDS: PROTONIX PO SCH (06:34)
[2019-07-09] MEDS: PULMICORT INH SCH (07:42)
[2019-07-09 07:48] VITALS: BP 157/93
[2019-07-09] MEDS: HUMULIN 70/30 (PARKWAY) SUBQ SCH (08:24)
[2019-07-09] MEDS: ASPIRIN PO SCH (08:24)
[2019-07-09] MEDS: MUCINEX PO SCH (08:24)
[2019-07-09] MEDS: ROCEPHIN 1 GM in NS 50 ML IV SCH (08:24)
[2019-07-09] MEDS: ZYRTEC PO SCH (08:24)
[2019-07-09] MEDS: LEVAQUIN PO SCH (08:24)
[2019-07-09] MEDS: LOVENOX SUBQ SCH (08:25)
[2019-07-09] MEDS: NICODERM PATCH TD SCH (08:36)
--- NOTE | 2019-07-09 16:16 | DISCHARGE SUMMARY ---
ADMISSION DATE: 07/06/2019 DISCHARGE DATE: 07/09/2019 ADMISSION DIAGNOSES: 1. Acute bronchitis with a history of asthma and chronic obstructive pulmonary disease. 2. Seasonal allergies. 3. Diabetes mellitus type 2. 4. Chronic back pain. 5. Hypertension, untreated. 6. Tobacco abuse. DISCHARGE DIAGNOSES: 1. Acute bronchitis with history of COPD. 2. Diabetes mellitus type 2. 3. Chronic back pain. 4. Hypertension. CONSULTATIONS: None. SURGERIES AND PROCEDURES: None. HOSPITAL COURSE: Ms. Ellie Calderon is a 44-year-old female with a medical history of asthma, COPD, diabetes mellitus untreated, hypertension untreated, chronic back pain, and seasonal allergies who states that for at least 3 days she has been having headaches, shortness of breath, severe coughing spells that were more frequent at night, dizziness, lightheadedness when she would cough. She admitted to being around other kids that had been congested as well. Chest x-ray was clear. White blood cell count was normal. She did have some hypoxemia along with expiratory wheezes noted. She was started on nebulizers and IV steroids. Sputum sample was obtained which was essentially negative. Had 1+ gram-negative rods and 3+ gram- positive cocci. Blood cultures were negative as well. She was started on Rocephin for IV antibiotic therapy. Started Zyrtec for her seasonal allergies, got her hemoglobin A1c which was 7.0. She was initiated on pattern blood glucoses and sliding scale insulin, diabetic diet. For her blood pressure, she remained stable, did not need any additives for that. For her tobacco abuse, cessation for at least 6 minutes was discussed. She had a chest x-ray that showed some questionable tiny bibasilar infiltrates the day after admit. She had a Levaquin that was added on top of the Rocephin. DISCHARGE VITAL SIGNS: Temperature 98.1 degrees, heart rate 88, respiratory rate 20, blood pressure 157/93, O2 saturation 94% on room air. LAB DATA: White blood cells 7000, hemoglobin 11, hematocrit 35, platelet count 241,000. Sodium 144, potassium 3.2, BUN 8, creatinine 0.3, glucose 130, calcium 8.4, bilirubin is less than 0.015. AST 16, ALT 17. She had a CRP that is quite elevated at 22. IMAGING: Chest x-ray on admit, no acute abnormalities. Repeat chest x-ray the next morning showed questionable tiny bibasilar infiltrate. She did not have an EKG but her telemetry strip showed normal sinus rhythm. DISCHARGE MEDICATIONS: 1. Aspirin 81 mg p.o. daily. 2. Metformin 500 mg p.o. daily. Please take half a tab p.o. for a week, then half a tab p.o. twice a day for a week, then 1 tablet p.o. twice a day continuously. 3. Levaquin 750 mg p.o. daily for another 7 days. 4. ProAir p.r.n. for respiratory wheezing. DISCHARGE DIET: Diabetic. DISCHARGE ACTIVITY: As tolerated. FOLLOWUP: She needs to find a primary and follow up with them. DISCHARGE INSTRUCTIONS: Notify MD or return to the emergency department immediately for any of the following: Shortness of breath, chest pain, increased or bloody sputum, persistent or uncontrolled asthma attacks. General instructions include keeping all follow up appointments, drinking enough water to keep urine clear to pale yellow, using your incentive spirometer 4 times daily for 2 weeks, taking all prescribed medications as directed especially antibiotic and return to the emergency department immediately for any new or worsening symptoms. DISCHARGE DISPOSITION: Home. Dictated by TIFFANY Jenkins for Ramez Augustin MD cc: TIFFANY Jenkins MD
== END 2019-07-09 10:47 | disposition home or self-care (01) | DRG 202 ==
LOC: P.ED 06:22 → P.MEDSURG 11:31
PROVIDERS: ATTEND Internal Medicine